=== PATIENT | male | born 1980 | race Hispanic/Latino ===

== ENCOUNTER 2023-10-09 12:00 | Emergency (ER) | payer OTHER ==
[~2023-10-09] VITALS: Ht 177.8 cm; Wt 95.3 kg
[2023-10-09] MEDS ORDERED: IBUP-2077 PO (13:25)
[2023-10-09 13:28] VITALS: BP 141/83; PULSE 90; RESP 18; O2SAT 98
[2023-10-09] MEDS: KETOROLAC 60 MG VIAL (30MG/ML) IM ONE (13:34)
== END 2023-10-09 13:39 | disposition home or self-care (01) ==
LOC: EDH 12:00
DX: G89.29 Other chronic pain (principal); M25.511 Pain in right shoulder; I10 Essential (primary) hypertension; F32.A Depression, unspecified; F41.9 Anxiety disorder, unspecified
CPT/HCPCS: 99283; 73030; 96372; J1885